=== PATIENT | female | born 1995 | race Caucasian/White ===

== ENCOUNTER 2017-06-24 18:19 | Emergency (ER) | payer SELFPAY ==
[2017-06-24 18:21] VITALS: BP 136/72; PULSE 110; RESP 18; TEMP 37.6; O2SAT 97; BMI 28.5
--- NOTE | 2017-06-24 19:50 | CT_ITS ---
STUDY: CT ABDOMEN AND PELVIS WITH CONTRAST REASON FOR EXAM: Female, 21 years old. Right lower quadrant pain, nausea vomiting diarrhea and fever RADIATION DOSAGE (If Supplied By Facility): CTDIvol = ( 12.79 ) mGy, DLP = ( 728.60 ) mGycm TECHNIQUE: Transaxial images were obtained from the dome of the diaphragm to the symphysis pubis without oral contrast. 100 ml of Isovue 300 contrast was administered. Sagittal and coronal images were reconstructed. Individualized dose optimization techniques were used for this CT. COMPARISON: None. FINDINGS: The visualized lung bases are unremarkable. The visualized portions of the heart are within normal limits. There is minimal dilatation of the central intrahepatic ductal system. Normal gallbladder and extrahepatic biliary system. Normal spleen. Normal pancreas. Normal bilateral adrenal glands. Normal right kidney. Normal left kidney. Normal visualized stomach. Normal small intestine. There is a moderate amount of formed stool in the rectosigmoid. The appendix is visualized and appears normal. Normal abdominal aorta. Normal inferior vena cava. Normal retroperitoneum. Normal urinary bladder. There is a cystic structure of the right adnexa with thick enhancing wall measuring 1.8 cm. There is a tiny amount of free fluid in the deep left pelvis. There is a small umbilical hernia containing fat. Normal osseous structures. CT/Abdomen/Pelvis WITH Contrast IMPRESSION: 1. Cystic structure of the right adnexa most likely ovarian in origin, with thick enhancing wall measuring 1.8 cm in diameter. Ultrasound correlation is recommended. 2. Tiny amount of free fluid in the deep left pelvis which may be physiologic. 3. The appendix appears normal. 4. There is a moderate amount of formed stool in the rectosigmoid. 5. There is minimal dilatation of the central intrahepatic biliary ductal system, which is of unknown significance in this patient. Electronically Signed: John Uriostegui MD at 22:47 EST , Service support ,
--- NOTE | 2017-06-24 19:53 | ED.DCSUM_ITS ---
- ER Visit Summary Date of Service: 06/24/17 Chief Complaint: Abdominal pain History of Present Illness: The patient is a 21 F presenting with abdominal pain. She states this started yesterday. She has pain in the right lower abdomen. She went to urgent care and was sent to the ED for further evaluation. She also complains of nausea vomiting and diarrhea. Denies fever. Denies possibility of . Physical Examination: Vitals are stable. Patient is afebrile. Alert no acute distress. HEENT exam is unremarkable. Neck is supple. Lungs are clear and equal bilaterally. Heart is regular rate and rhythm. Abdomen is soft right lower quadrant tenderness, no rebound or guarding. Extremities are unremarkable. Skin is warm and dry. Remainder of exam is unremarkable. Emergency Department Course and Treatment: She is given IV fluids, Zofran. CBC , chemistries, LFTs unremarkable. HCG negative. urinalysis shows ketones. CT abdomen pelvis shows cystic structure of the right adnexa most likely ovarian in origin, with thick enhancing wall measuring 1.8 cm in diameter. Ultrasound correlation is recommended. Tiny amount of free fluid in the deep left pelvis which may be physiologic. The appendix appears normal. There is a moderate amount of formed stool in the rectosigmoid. There is minimal dilatation of the central intrahepatic biliary ductal system, which is of unknown significance in this patient. Pelvic ultrasound was obtained and shows 1.7 cm right ovarian cyst. She is resting comfortably in the ED. Advised to follow up with [facility]. Advised to return to the ED for worsening complaints. Disposition: Discharge home Impression: Right ovarian cyst This note was generated with [employer] dictation software. It may contain incorrect words, spelling, and punctuation that were not noted in review of the chart prior to signing ED Disposition - Plan for ED Patient: Chief Complaint: Abd Pain Referrals: Care Physician,No Primary [Primary Care Provider] -
[2017-06-24 20:14] VITALS: PULSE 92; RESP 16; O2SAT 100
[2017-06-24] MEDS: 0.9% Normal Saline 1,000 ML 1000 ML IV (20:22)
[2017-06-24 20:34] LABS: Color, Urine Yellow (Yellow); Glucose, Dipstick Normal (Normal); Leukocyte Esterase-Dipstick 25 /ul (Negative); Nitrite-Dipstick Negative (Negative); Occult Blood-Urine Negative /ul (Negative); Protein-Dipstick 15 mg/dl (Negative); Urine Clarity Sl. Cloudy (Clear); Urine Urobilinogen Normal (Normal)
[2017-06-24 20:36] LABS: Absolute Lymphocyte Count 0.96 X10^3/ul (0.83-4.51); Absolute Neutrophil Count 4.7 X10^3/uL (2.0-7.7); Basophil# 0.01 X10^3/uL; Basophil% 0.2 % (0-1); Eosinophil# 0.01 X10^3/uL; Eosinophils% 0.2 % (0-5); Hematocrit 39.9 % (37-47); Hemoglobin 13.3 g/dl (12.0-15.0); Lymphocyte # 0.96 X10^3/ul (4.0); Lymphocyte % 16.3 % (19-41); Mean Corp Hgb Conc 33.3 g/gl (32-36); Mean Corpuscular Hgb 29.7 pg (27.0-32.0); Mean Corpuscular Volume 89.1 fL (81-99); Mean Platelet Vol. 10.5 fl (6.2-12.0); Monocyte# 0.19 X10^3/uL; Monocyte% 3.2 % (0-10); Neutrophil # 4.71 X10^3/uL (2.7-7.7); Neutrophil % 80.1 % (47-70); Platelet Count 195 K/mm3 (150-450); RBC Distribution Width CV 12.6 % (11.6-14.6); RBC Distribution Width SD 40.2 fl (35.1-43.9); Red Blood Count 4.48 M/mm3 (4.2-5.4); White Blood Count 5.9 K/mm3 (4.4-11.0)
[2017-06-24 20:37] LABS: POSITIVE COUNT NO; POSITIVE DIFFERENTIAL NO; POSITIVE MORPHOLOGY NO
[2017-06-24 20:37] LABS: Ketone-Dipstick 150 mg/dl (Negative); Urine Bilirubin Dipstick 1 mg/dL (Negative)
[2017-06-24 20:40] LABS: Mucous, Urine 2+ /hpf (<or=2+); Red Blood Cells-Urine 0-5 SEEN /hpf (0-5); Squamous Epithelial Cells - UA 0-5 SEEN /hpf (5-10)
[2017-06-24 20:42] LABS: Bacteria RARE /hpf (None Seen)
[2017-06-24 20:43] LABS: White Blood Cells 0-5 SEEN /hpf (0-5)
[2017-06-24 21:02] LABS: Anion Gap 11 (5-15); BUN 17 mg/dL (7-18); BUN/Creat Ratio 24.7 RATIO (10-20); Calcium,Total 8.6 mg/dL (8.5-10.1); Chloride 103 mmol/L (98-107); Creatinine, Serum 0.69 mg/dL (0.55-1.02); EST Glomerular Filtration Rate 115 mL/min (>60); Est Glom Filt Rate - Afr Amer 139 mL/min (>60); Estimated Creatinine Clearance 107.58 ml/min; Glucose 96 mg/dL (74-106); Potassium 3.3 mmol/L (3.5-5.1); Sodium Level 137 mmol/L (136-145)
[2017-06-24 21:14] LABS: Pregnancy, Serum, hCG Quali. NEGATIVE Negative (0-9 Nonpreg)
[2017-06-24 22:00] VITALS: RESP 16
--- NOTE | 2017-06-24 23:30 | US_ITS ---
STUDY: ULTRASOUND TRANSVAGINAL CLINICAL: Female, 21 years old. Ovarian cyst seen on CT TECHNIQUE: Transvaginal COMPARISON: None. FINDINGS: The uterus measures 7.7 x 4.9 x 3.7 cm. The uterus is anteverted and is seen in the midline. There are no myometrial masses. Normal endometrial thickness measuring 9 mm. Endometrial stripe is hyperechoic. There are no endometrial masses, and there is no fluid in the endometrial cavity. No intrauterine device. Nabothian cysts are noted. Normal right ovary, measuring 3.5 x 3.2 x 2.2 cm. There is a 1.7 cm anechoic lesion associated with the right ovary. Internal vascular flow seen within the ovary on color Doppler imaging. Normal left ovary, measuring 3.6 x 2.1 x 2.2 cm. No focal lesion. Internal vascular flow to the ovary on color Doppler imaging. There are multiple follicles without a dominant cyst. Small amount of free fluid in the pelvic cul-de-sac. US/Transvaginal Non- IMPRESSION: 1. 1.7 cm right ovarian cyst versus follicle. 2. Small amount of free fluid in the pelvic cul-de-sac. Electronically Signed: Ignacio Gaona MD at 0:58 EST Tel , Service support ,
[2017-06-24 23:53] LABS: AST(SGOT) 9 U/L (15-37); Alanine Aminotransfer ALT/SGPT 17 U/L (13-56); Albumin, Serum 4.1 g/dL (3.2-5.0); Alkaline Phosphatase 54 U/L (45-117); Bilirubin, Direct 0.18 mg/dL (0.00-0.30); Globulin 3.5 g/dL (2.2-4.2); Lipase 79 U/L (73-393); Protein, Total 7.6 g/dL (6.4-8.2)
[2017-06-25 00:18] VITALS: BP 100/54; PULSE 79; RESP 16; O2SAT 97
--- NOTE | 2017-06-25 01:26 | ED.DEP ---
ED Disposition - Plan for ED Patient: Chief Complaint: Abd Pain Instructions: ED Cyst Ovarian Prescriptions: Ondansetron [Zofran Odt] 4 mg PO Q8H PRN PRN #10 tablet PRN Reason: Nausea Dicyclomine HCl [Bentyl] 20 mg PO TIDAC #20 capsule Naproxen [Naprosyn] 500 mg PO BID PRN #20 tablet Referrals: Care Physician,No Primary [Primary Care Provider] -
[2017-06-25 01:34] VITALS: BP 105/49; PULSE 80; RESP 16; O2SAT 98
== END 2017-06-25 01:35 | disposition home or self-care (01) ==
LOC: ED 19:59
PROVIDERS: Emergency Provider Emergency Medicine
DX: N83.201 Unspecified ovarian cyst, right side (principal)
CPT/HCPCS: 74177; 76830; 80048; 80076; 81001; 83690; 84703; 85025; 93976; 96360; 96361; 99284; J7030; Q9967; A4216; J2405